=== PATIENT | female | born 1995 | race Caucasian/White ===

== ENCOUNTER 2016-11-10 08:23 | Emergency (ER) | payer BC ==
[2016-11-10] MEDS ORDERED: Ondansetron INJ* 2 MG/ML VIAL IV ONE (09:37)
[2016-11-10] MEDS ORDERED: NS 0.9% 1000 ML* 1,000 ML IV ONE ×2 (09:37→09:48)
[2016-11-10 10:12] LABS: Hematocrit 38 % (35-47); Hemoglobin 12.5 g/dl (12.0-16.0); Mean Corpuscular HGB Conc 33 g/dl (31-36); Mean Corpuscular Hemoglobin 30 pg (27-31); Mean Corpuscular Volume 90 fL (80-97); Mean Platelet Volume 9 um3 (7.4-10.4); Red Cell Distribution Width 13 % (10.5-15); White Blood Count 14.8 10^3/ul (3.5-10.8)
[2016-11-10 10:21] LABS: BUN/Creatinine Ratio 15.6 (8-20); Calcium 8.2 mg/dL (8.6-10.3); EGFR African American 224.1 (>60); EGFR Non-African American 174.2 (>60); Potassium 3.8 mmol/L (3.5-5.0)
--- NOTE | 2016-11-10 10:48 | RAD ---
HISTORY: Vomiting and right upper quadrant pain in a woman who is 28 weeks COMPARISONS: None TECHNIQUE: Multiple transverse and longitudinal ultrasound images were obtained of the right upper quadrant. FINDINGS: LIVER: The liver is normal in dimensions and echogenicity. Normal hepatic and portal venous blood flow is duplicated with color flow imaging. There is no gross intrahepatic biliary duct dilatation. GALLBLADDER AND EXTRAHEPATIC BILIARY DUCT: The gallbladder is normal in appearance without intraluminal stones or other soft tissue masses. There is no pericholecystic fluid or gallbladder wall thickening. The common bile duct measures a maximum diameter of 3 mm. PANCREAS: The portions of the pancreas not obscured by bowel gas are normal in appearance. RIGHT KIDNEY: The right kidney is normal in size, morphology and echogenicity. IMPRESSION: Normal ultrasound of the right upper quadrant.
[2016-11-10 11:55] LABS: Urine Bilirubin Negative (Negative); Urine Glucose 2+(150 mg/dL) (Negative); Urine Nitrite Negative (Negative)
[2016-11-10 13:46] VITALS: BP 113/70
--- NOTE | 2016-11-13 16:32 | ED ---
Bear Flores Adam, scribed for Evelio Lama MD on 11/10/16 at 1009 . Abdominal Pain/Female - HPI Summary HPI Summary: A 21 y/o female presents to the ED c/o N/V and diffuse upper abdominal pain rated as 3/10. These symptoms started suddenly this morning around 02:00. She denies any urinary symptoms, hematuria, vaginal bleeding, lower abd pain, or back pain. Her partner reports similar symptoms yesterday. She is 28 weeks with her first which has been normal thus far. 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 Patient had an ultrasound on 10/23/16 which was normal. PMHx is negative and she denies any alcohol or tobacco use. - History of Current Complaint Chief Complaint: EDNauseaVomitDiarrh Stated Complaint: VOMITING Time Seen by Provider: 11/10/16 08:51 Hx Obtained From: Patient ?: Yes Onset/Duration: Sudden Onset, Lasting Hours - Since 0200 this monring Timing: Constant Severity Initially: Moderate Severity Currently: Moderate Pain Intensity: 3 Pain Scale Used: 0-10 Numeric Location: Diffuse - Upper Radiates: No Character: Cramping Aggravating Factor(s): Other: - Partner was sick with similar symptoms yesterday Alleviating Factor(s): Nothing Associated Signs and Symptoms: Positive: Nausea, Vomiting - Yellow. Negative: Back Pain, Urinary Symptoms, Vaginal Bleeding, Diarrhea Allergies/Adverse Reactions: Allergies Allergy/AdvReac Type Severity Reaction Status Date / Time No Known Allergies Allergy Verified 11/07/16 17:29 PMH/Surg Hx/FS Hx/Imm Hx Endocrine/Hematology History: Denies: Hx Diabetes Sensory History: Reports: Hx Contacts or Glasses Opthamlomology History: Reports: Hx Contacts or Glasses Psychiatric History: Reports: Hx Anxiety, Hx Eating Disorder - Surgical History Surgery Procedure, Year, and Place: L shoulder surgeries x3 Infectious Disease History: No Infectious Disease History: Denies: Traveled Outside the [place] in Last 30 Days - Family History Known Family History: Negative: Cardiac Disease - Social History Alcohol Use: None Substance Use Type: Reports: None Smoking Status (MU): Former Smoker Type: Cigarettes Length of Time of Smoking/Using Tobacco: smoked for 2 months, dec and january 2016 Have You Smoked in the Last Year: Yes Review of Systems Constitutional: Negative Negative: Fever, Chills Eyes: Negative Negative: Erythema ENT: Negative Negative: Sore Throat Cardiovascular: Negative Negative: Chest Pain Respiratory: Negative Negative: Shortness Of Breath, Cough Positive: Abdominal Pain - Diffuse upper, Vomiting, Nausea. Negative: Diarrhea Genitourinary: Negative Positive: other - Negative: vaginal bleeding. Negative: dysuria, discharge, hematuria Musculoskeletal: Negative Negative: Myalgia, Edema Skin: Negative Negative: Rash Neurological: Negative, Other - Negative: Dizziness Psychological: Normal All Other Systems Reviewed And Are Negative: Yes Physical Exam - Summary Physical Exam Summary: Constitutional: Well-developed, Well-nourished, Alert. (-) Distressed Skin: Warm, Dry HENT: Normocephalic; Atraumatic Eyes: Conjunctiva normal Neck: Musculoskeletal ROM normal neck. (-) JVD, (-) Stridor, (-) Tracheal deviation Cardio: Rhythm regular, rate normal, Heart sounds normal; Intact distal pulses; The pedal pulses are 2+ and symmetric. Radial pulses are 2+ and symmetric. (-) Murmur Pulmonary/Chest wall: Effort normal. (-) Respiratory distress, (-) Wheezes, (-) Rales Abd: Soft, Mild RUQ tenderness, (-) Distension, (-) Guarding, (-) Rebound Musculoskeletal: (-) Edema Lymph: (-) Cervical adenopathy Neuro: Alert, Oriented x3 Psych: Mood and affect Normal Vital Signs On Initial Exam: Initial Vitals Temp Pulse Resp BP Pulse Ox 97.2 F 108 16 125/68 98 11/10/16 08:25 11/10/16 08:25 11/10/16 08:25 11/10/16 08:25 11/10/16 08:25 - Tobi Coma Scale Coma Scale Total: 15 Diagnostics - Vital Signs Vital Signs Temp Pulse Resp BP Pulse Ox 11/10/16 08:25 97.2 F 108 16 125/68 98 - Laboratory Result Diagrams: 11/10/16 08:55 11/10/16 08:55 Lab Statement: Any lab studies that have been ordered have been reviewed, and results considered in the medical decision making process. - Ultrasound No standard instances Ultrasound Interpretation: No Acute Changes Ultrasound Interpretation Completed By: Radiologist - Additional Comments Diagnostic Additional Comments: Gallbladder ultrasound Re-Evaluation - Re-Evaluation First Eval Re-Evaluation Time: 13:09 Change: Improved Comment: Patient tolerated PO and will be discharged home with a prescription for Zofran Abdominal Pain Fem Course/Dx - Diagnoses Provider Diagnoses: , Vomiting Discharge - Discharge Plan Condition: Stable Disposition: HOME Referrals: Brian CHAO,Tracy Rooney [Medical Doctor] - 2 Days Additional Instructions: Return to the emergency department for changing or worsening symptoms. Follow up with new PCP in [place] in two days. The documentation as recorded by the Bear blakely Adam accurately reflects the service I personally performed and the decisions made by me, Evelio Lama MD.
== END 2016-11-10 13:20 | disposition home or self-care (01) ==
LOC: ED 08:23
DX: R10.10 Upper abdominal pain, unspecified (principal); Z87.891 Personal history of nicotine dependence; Z3A.28 28 weeks gestation of pregnancy
CPT/HCPCS: 36415; 76705; 80048; 81003; 85027; 96361; 96374; 99282; J2405